=== PATIENT | male | born 1980 | race African-American/Black ===

== ENCOUNTER 2021-08-27 07:14 | Emergency (ER) | payer MEDICAID ==
[~2021-08-27] VITALS: Ht 190.5 cm; Wt 116.0 kg
[2021-08-27] MEDS ORDERED: KETOROLAC 60MG/2ML VIAL IM ONE (08:45)
[2021-08-27] MEDS ORDERED: ONDANSETRON 4MG ODT PO ONE (08:45)
[2021-08-27] MEDS ORDERED: HYDROCODONE/ACETAMINOPHEN 5/325MG TABLET PO ONE (08:45)
[2021-08-27 09:10] VITALS: BP 133/72
[2021-08-27] MEDS ORDERED: IBUP-2030 MT (09:12)
[2021-08-27] MEDS ORDERED: HYDR-4001 MT (09:15)
== END 2021-08-27 09:35 | disposition home or self-care (01) ==
LOC: ER 07:33
DX: M25.461 Effusion, right knee (principal); E78.00 Pure hypercholesterolemia, unspecified
CPT/HCPCS: 73562; 96372; 99283; J1885; L1830; Q0162

== ENCOUNTER 2022-01-03 18:59 | Emergency (ER) | payer MEDICAID ==
[~2022-01-03] VITALS: Ht 193 cm; Wt 116.0 kg
[~2022-01-03 18:59] MED LIST: HYDR-4001 MT; IBUP-2030 MT
[2022-01-03] MEDS ORDERED: FAMOTIDINE 20MG/2ML VIAL IV ONE (19:30)
[2022-01-03] MEDS ORDERED: DIPHENHYDRAMINE 50MG/ML VIAL IV ONE (19:30)
[2022-01-03] MEDS ORDERED: METHYLPREDNISOLONE SOD SUCC 125 MG/2 ML VIAL IV ONE (19:30)
[2022-01-03 20:09] LABS: BASOPHILS % 0.2 % (0.0-2.0); EOSINOPHILS % 0.4 % (0.0-5.0); HEMATOCRIT. 49.2 % (42.0-52.0); LYMPHOCYTES % 54.7 % (20.0-50.0); MEAN CORPUSCULAR HEMOGLOBIN 31.8 pg (28.0-32.0); MONOCYTES % 6.1 % (2.0-8.0); NEUTROPHILS % 38.6 % (40.0-76.0); RED BLOOD CELL COUNT 5.35 mill/uL (4.7-6.1); RED CELL DISTRIBUTION WIDTH 14.2 % (11.6-14.6)
[2022-01-03 20:18] LABS: CHLORIDE 107 mEq/L (98-107)
[2022-01-03] MEDS ORDERED: ASPIRIN 325MG EC TABLET PO ONE (20:30)
[2022-01-03 20:57] LABS: MEAN PLATELET VOLUME 8.5 fl (7.4-10.4); PLATELET 309 x1000/uL (130-400)
[2022-01-03] MEDS ORDERED: EPIN0.3P3 IM (22:21)
[2022-01-03 22:24] LABS: CLARITY URINE CLEAR (CLEAR); COLOR URINE YELLOW (YELLOW); KETONES URINE TRACE (NEGATIVE); LEUKOCYTE ESTERASE URINE NEGATIVE (NEGATIVE); NITRITE URINE NEGATIVE (NEGATIVE); OCCULT BLOOD URINE NEGATIVE (NEGATIVE); PH URINE 5.5 (4.5-8.0); PROTEIN URINE TRACE (NEGATIVE); SPECIFIC GRAVITY URINE 1.026 (1.005-1.030)
[2022-01-03 23:30] VITALS: BP 121/82
== END 2022-01-04 00:15 | disposition home or self-care (01) ==
LOC: ER 18:59
DX: T78.40XA Allergy, unspecified, initial encounter (principal); R07.89 Other chest pain; E78.00 Pure hypercholesterolemia, unspecified; F12.10 Cannabis abuse, uncomplicated; X58.XXXA Exposure to other specified factors, initial encounter
CPT/HCPCS: 36415; 71045; 80053; 81003; 82962; 83880; 84484; 85025; 93005; 96374; 96375; 99285; J1200; J2930; J3490

== ENCOUNTER 2023-02-07 17:31 | Emergency (ER) | payer BC, MEDICAID, OTHER ==
[~2023-02-07] VITALS: Ht 193 cm; Wt 113.0 kg
[~2023-02-07 17:31] MED LIST changes: +EPIN0.3P3 IM
[2023-02-07 17:50] VITALS: BP 142/90; PULSE 68; RESP 16; TEMP 98.4; O2SAT 100
[2023-02-07] MEDS ORDERED: IBUP-2028 MT (19:18)
== END 2023-02-07 19:25 | disposition home or self-care (01) ==
LOC: ER 17:31
DX: M79.642 Pain in left hand (principal); E78.00 Pure hypercholesterolemia, unspecified; F12.10 Cannabis abuse, uncomplicated
CPT/HCPCS: 73120; 99283